=== PATIENT | female | born 1980 | race Caucasian/White ===

== ENCOUNTER 2016-12-30 11:50 | Emergency (ER) | payer MEDICAID ==
[2016-12-30 12:57] LABS: SPECIFIC GRAVITY 1.015 (1.001-1.030); URINE BILIRUBIN NEGATIVE (NEGATIVE); URINE BLOOD NEGATIVE (NEGATIVE); URINE GLUCOSE (UA) NEGATIVE (NEGATIVE); URINE LEUKOCYTE ESTERASE 1+ (NEGATIVE); URINE NITRITE NEGATIVE (NEGATIVE); URINE PROTEIN NEGATIVE (NEGATIVE); URINE UROBILINOGEN NORMAL (0-1 mg/dl)
[2016-12-30 13:00] LABS: URINE COLOR YELLOW
[2016-12-30 13:01] LABS: URINE APPEARANCE HAZY
[2016-12-30 13:08] LABS: URINE AMORPHOUS SEDIMENT 2+; URINE BACTERIA FEW; URINE RBC 0-1 /hpf; URINE WBC 0-1 /hpf
[2016-12-30] MEDS ORDERED: SODIUM CHLORIDE 0.9% 1,000 ML ONE (13:10)
[2016-12-30] MEDS ORDERED: CEFTRIAXONE SODIUM 1 G VIAL ONE (13:10)
[2016-12-30] MEDS ORDERED: KETOROLAC TROMETHAMINE 30 MG/ML 1 ML VIAL ONE (13:10)
[2016-12-30 14:10] LABS: ABSOLUTE NEUTROPHIL COUNT 6.1 K/mm3 (1.8-7.7); BASO # 0.1 K/mm3 (0.0-0.2); BASO % 0.7 % (0.2-1.0); HEMATOCRIT 41.4 % (37.0-47.0); HEMOGLOBIN 13.3 gm/l (12.0-16.0); IMM NEUT% 0.3 % (0-1); LYMPH # 2.5 (1.0-4.8); LYMPH % 25.5 % (15-45); MEAN CELL VOLUME 87.9 fl (81.0-99.0); MEAN CORPUSCULAR HEMOGLOBIN 28.2 pg (27.0-31.0); MEAN CORPUSCULAR HGB CONC 32.1 g/dl (33.0-37.0); MEAN PLATELET VOLUME 11.5 fl (7.4-10.4); MONO # 1.1 (0.0-0.8); MONO % 11.2 % (4-12); NEUT % 62.3 % (43-75); PLATELET COUNT 304 K/mm3 (130-400)
[2016-12-30 14:13] LABS: ALB/GLOB RATIO 1.5 (>1.0); ALBUMIN 4.3 gm/dL (3.5-5.7); CALCIUM 9.7 mg/dL (8.6-10.3)
[2016-12-30 14:24] LABS: HCG,QUALITATIVE URINE NEGATIVE
--- NOTE | 2016-12-30 14:25 | CT ---
CT ABDOMEN AND PELVIS WITHOUT CONTRAST HISTORY: Left flank pain. TECHNIQUE: No intravenous contrast administered; contiguous axial images were acquired from the lung bases to the ischial tuberosities. Oral contrast was not administered. Imaging mildly limited by motion artifact. COMPARISON:None. FINDINGS: LUNG BASES: No gross airspace consolidation or pleural effusion. LIVER: No focal mass effect. SPLEEN: No focal mass effect. PANCREAS: No focal mass effect. ADRENAL GLANDS: No mass effect. KIDNEYS: No renal calculi. No collecting system dilatation. GALLBLADDER: Contracted, evidence of cholelithiasis. BOWEL: Moderate fecal loading. Limited assessment of the distal colon due to decompression. No abnormal small bowel dilatation. Colonic diverticulosis without features of diverticulitis. APPENDIX: Normal gas-filled appendix. PELVIC ORGANS: No gross mass effect. FREE FLUID: No gross free fluid identified. ABDOMINOPELVIC LYMPH NODES: No abnormally enlarged lymph nodes identified. ABDOMINAL AORTA: Normal caliber. OSSEOUS STRUCTURES: Findings of minor disc degeneration. No destructive lesions. Mildly dysplastic appearance of the femoral heads. IMPRESSION: 1. No evidence of upper urinary tract obstruction or urolithiasis. The current study does not exclude pyelonephritis. 2. Cholelithiasis with contracted gallbladder. 3. Nonobstructive, noninflammatory appearance of bowel. Normal appendix. Colonic diverticulosis without diverticulitis. 4. Mild dysplasia of the femoral heads. Results were electronically transmitted to the electronic medical record at 12/30/2016 at 1421 hours.
== END 2016-12-30 14:48 | disposition home or self-care (01) ==
LOC: ED 11:50
DX: R10.9 Unspecified abdominal pain (principal)
CPT/HCPCS: 83690; 81025; 85025; 80053; 81001; 74176; 96375; 99284 ×2; 96361; 96365; J0696; J1885; J7030